=== PATIENT | male | born 1950 | race Native Hawaiian/Other Pacific Islander ===

== ENCOUNTER 2017-11-16 07:57 | Outpatient (CLI) | payer BC, OTHER ==
[~2017-11-16 07:57] MED LIST: ALLEGRA ALRG180 M1 PO; ASA LOW STR81 MG PO; DIVA250T PO; FLUT0.05 NAS; GABA100C2 PO; LEVO500T PO; OMEGA-31000 MG OR; VENLAFAXINE75 M2 PO
== END 2017-11-16 21:30 | disposition home or self-care (01) ==
LOC: US 07:57
DX: Z13.6 Encounter for screening for cardiovascular disorders (principal)

== ENCOUNTER 2018-08-28 10:25 | Outpatient (CLI) | payer OTHER, MEDICARE ==
[2018-08-28 10:59] LABS: PLATELET COUNT 232 K/uL (142-355)
[2018-08-28 11:18] LABS: POTASSIUM 4.5 mmol/L (3.6-5.2)
== END 2018-08-28 23:23 | disposition home or self-care (01) ==
LOC: LABW 10:25
PROVIDERS: Physician Assistant
DX: I10 Essential (primary) hypertension (principal); E78.00 Pure hypercholesterolemia, unspecified; N40.0 Benign prostatic hyperplasia without lower urinary tract symptoms; R79.89 Other specified abnormal findings of blood chemistry; E55.9 Vitamin D deficiency, unspecified; Z79.899 Other long term (current) drug therapy
CPT/HCPCS: 36415; 80053; 80061; 82306; 83036; 84154; 84443; 85027

== ENCOUNTER 2020-09-29 13:45 | Outpatient (CLI) | payer OTHER, MEDICARE | END 2020-09-29 21:06 | disposition home or self-care (01) | LOC: MRI 13:45 | PROVIDERS: ATTEND Physician Assistant | DX: M25.552 Pain in left hip (principal); M54.32 Sciatica, left side; M19.90 Unspecified osteoarthritis, unspecified site | CPT/HCPCS: 36415; 82565; 84520; A9576 ==

== ENCOUNTER 2020-11-24 10:47 | Outpatient (CLI) | payer OTHER, MEDICARE | END 2020-11-24 20:14 | disposition home or self-care (01) | LOC: RAD 10:47 | PROVIDERS: ATTEND Physician Assistant | DX: M54.5 Low back pain (principal) ==

== ENCOUNTER 2023-04-22 09:24 | Outpatient (CLI) | payer OTHER, MEDICARE | END 2023-04-22 20:04 | disposition home or self-care (01) | LOC: RAD 09:24 | PROVIDERS: ATTEND Physician Assistant | DX: R10.9 Unspecified abdominal pain (principal) ==

== ENCOUNTER 2023-04-26 09:09 | Outpatient (CLI) | payer OTHER, MEDICARE | END 2023-04-26 19:26 | disposition home or self-care (01) | LOC: CT 09:09 | PROVIDERS: ATTEND Physician Assistant | DX: R10.13 Epigastric pain (principal) ==